=== PATIENT | female | born 2005 | race Two or more races ===

== ENCOUNTER 2025-08-28 14:36 | Emergency (ER) | payer MEDICAID ==
[~2025-08-28] VITALS: Ht 147.3 cm; Wt 55.5 kg
--- NOTE | 2025-08-28 15:43 | ED.PDOC ---
GI ASSESSMENT HPI Comments 19-year-old female presented to the emergency department complaining of abdominal pain and diarrhea for the past three weeks she was feeling better but the past two or three days patient is getting worse Chief Complaint: Abdominal Pain Time Seen by MD: 14:38 Primary Care Provider: LOU Rodriguez Notes: Nurses Notes, Medications, Allergies Allergies: Coded Allergies: NO KNOWN ALLERGIES (Unverified , 12/26/12) Home Meds Active Scripts Metoclopramide Hcl (Reglan) 10 Mg Tab, 10 MG PO BID for 10 Days, #20 TAB Prov:TAMIKA LEBLANC MD 08/28/25 Metronidazole (Flagyl) 500 Mg Tab, 1 TAB PO TID for 5 Days, #15 TAB Prov:TAMIKA LEBLANC MD 08/28/25 Bismuth Subsalicylate (PEPTO-BISMOL TO-GO) 262 Mg Chw, 262 MG PO QID for 10 Days, #40 TAB.CHEW Prov:TAMIKA LEBLANC MD 08/28/25 Information Source: Patient Mode of Arrival: Ambulatory Timing: Weeks, Came on: Gradually Duration: Since onset Quality: Aching, Burning, Cramping Vomitus: None Stool: Loose Severity: Moderate Recent: Possible spoiled food Recent Hx of: None Pain Location: Diffuse Modifying Factors: Food Associated sign and symptoms: Nausea, Diarrhea, Abdominal Pain Past Medical History PAST MEDICAL HISTORY: Denies Surgical History: Denies all surgeries 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 Pertinent BUTTON MACHINE OPERATOR History Family History Family History: Unknown Social History Smoker: Non-Smoker Alcohol: Denies ETOH Use Drugs: Denies Drug Use Lives In: Home Constitutional: denies: chills, diaphoresis, fatigue, fever, malaise, sweats, weakness, others EENTM: denies: blurred vision, double vision, ear bleeding, ear discharge, ear drainage, ear pain, ear ringing, eye pain, eye redness, hearing loss, mouth pain, mouth swelling, nasal discharge, nose bleeding, nose congestion, nose pain, photophobia, tearing, throat pain, throat swelling, voice changes, others Respiratory: denies: cough, hemoptysis, orthopnea, SOB at rest, shortness of breath, SOB with excertion, stridor, wheezing, others Cardiovascular: denies: chest pain, dizzy spells, diaphoresis, Dyspnea on exert ion, edema, irregular heart beat, left arm pain, lightheadedness, palpitations, PND, syncope, others Gastrointestinal: reports: abdominal pain, diarrhea, nausea; denies: abdomen distended, blood streaked bowels, constipated, dysphagia, difficulty swallowing, hematemesis, melena, poor appetite, poor fluid intake, rectal bleeding, rectal pain, vomiting, others Genitourinary: denies: abnormal vagina bleeding, burning, dyspareunia, dysuria, flank pain, frequency, hematuria, incontinence, pain, , vagina discharge, urgency, others Neurological: denies: dizziness, fainting, headache, left sided numbness, left sided weakness, numbness, paresthesia, pre-existing deficit, right sided numbness, right sided weakness, seizure, speech problems, tingling, tremors, weakness, others Musculoskeletal: denies: back pain, gout, joint pain, joint swelling, muscle pain, muscle stiffness, neck pain, others Integumetry: denies: bruises, change in color, change in hair/nails, dryness, laceration, lesions, lumps, rash, wounds, others Allergic/Immunocompromised: denies: Difficulty Healing, Frequent Infections, Hives, Itching, others Hematologic/Lymphatic: denies: anemia, blood clots, easy bleeding, easy bruising, swollen glands, others Endocrine: denies: excessive hunger, excessive sweating, excessive thirst, excessive urination, flushing, intolerance to cold, intolerance to heat, unexplained weight gain, unexplained weight loss, others Psychiatric: denies: anxiety, bipolar disorder, depression, hopeless, panic disorder, schizophrenia, sleepless, suicidal, others All Other Systems: Reviewed and Negative Physical Exam General Appearance: Mild Distress, Obese HEENT: Normal ENT Inspection, Pharynx Normal, TMs Normal Neck: Full Range of Motion, Non-Tender, Normal, Normal Inspection Respiratory: Chest Non-Tender, Lungs Clear, No Accessory Muscle Use, No Respiratory Distress, Normal Breath Sounds Cardiovascular: No Edema, No JVD, No Murmur, No Gallop, Normal Peripheral Pulses, Regular Rate/Rhythm Breast Exam: Deferred Gastrointestinal: No Organomegaly, Non Tender, No Pulsatile Mass, Normal Bowel Sounds, Soft Genitalia: Deferred Pelvic: Deferred Rectal: Deferred Extremities: No calf tenderness, Normal capillary refill, Normal inspection, Normal range of motion, Non-tender, No pedal edema Neurologic: Alert, ink printer II-XII nml as Tested, No Motor Deficits, Normal Affect, Normal Mood, No Sensory Deficits Cerebellar Function: Normal Reflexes: Normal Skin: Dry, Normal Color, Warm Peripheral Pulses: 1+ carotid (R), 1+ carotid (L), 1+ femoral (R) Lymphatic: No Adenopathy Was a procedure done? Was a procedure done?: No GI differential Dx Differential Diagnosis: Gastritis/PUD, Gastroenteritis, Inflammatory BD, UTI, Dehydration, Diabetes/ DKA, Drug toxicity, Electrolyte Imbalance, Food Poisoning X-Ray, Labs, Meds, VS Vital Signs Date Time Temp Pulse Resp B/P (MAP) Pulse Ox O2 Delivery O2 Flow Rate FiO2 08/28/25 17:02 61 19 100 Room Air 08/28/25 17:02 98.1 61 19 104/69 (81) 100 98.1 08/28/25 15:53 67 16 98 Room Air* 0 21 08/28/25 15:49 97.7 73 16 121/76 (91) 99 97.7 08/28/25 14:37 98.7 76 16 116/85 98 98.7 Lab Test 08/28/25 16:06 08/28/25 15:46 Range/Units Urine Color Colorless Yellow Urine Clarity Clear Clear Urine pH 7.5 5.0-9.0 Urine Specific [place] 1.007 1.001-1.035 Urine Protein Negative Negative Urine Ketones Negative Negative Urine Blood Negative Negative /uL Urine Nitrite Negative Negative Urine Bilirubin Negative Negative Urine Urobilinogen Normal Negative mg/dL Urine Leukocyte Esterase Negative Negative /uL Urine RBC 1 0 - 4 /hpf Urine Microscopic WBC < 1 0-5 /HPF Urine Squamous Epithelial Cells Few <5 /hpf Urine Bacteria None seen None Seen /hpf Urine Glucose Normal Normal mg/dL White Blood Count 5.1 4.4-10.8 10^3/uL Red Blood Count 4.74 4.0-5.20 10^6/uL Hemoglobin 13.8 12.2-16.2 g/dL Hematocrit 41.9 36.0-46.0 % Mean Corpuscular Volume 88.3 80.0-100.0 fL Mean Corpuscular Hemoglobin 29.0 28.0-32.0 pg Mean Corpuscular Hemoglobin Concent 32.9 32.0-36.0 g/dL Red Cell Distribution Width 13.4 11.8-14.3 % Platelet Count 295 140-450 10^3/uL Mean Platelet Volume 8.5 6.9-10.8 fL Neutrophils (%) (Auto) 52.9 37.0-80.0 % Lymphocytes (%) (Auto) 31.6 10.0-50.0 % Monocytes (%) (Auto) 12.2 H 0.0-12.0 % Eosinophils (%) (Auto) 2.7 0.0-7.0 % Basophils (%) (Auto) 0.6 0.0-2.0 % Neutrophils # (Auto) 2.7 1.6-8.6 10 ^3/uL Lymphocytes # (Auto) 1.6 0.4-5.4 10 ^3/uL Monocytes # (Auto) 0.6 0-1.3 10 ^3/uL Eosinophils # (Auto) 0.1 0-0.8 10 ^3/uL Basophils # (Auto) 0 0-0.2 10 ^3/uL Nucleated Red Blood Cells 0.2 % Sodium Level 141 136-145 mmol/L Potassium Level 4.0 3.5-5.1 mmol/L Chloride Level 105 98-107 mmol/L Carbon Dioxide Level 25 20-31 mmol/L Anion Gap 11 5-15 Blood Urea Nitrogen 7 L 9-23 mg/dL Creatinine 0.72 0.550-1.02 mg/dL Glomerular Filtration Rate Calc 123 >90 mL/min BUN/Creatinine Ratio 9.7 L 10.0-20.0 Serum Glucose 80 74-106 mg/dL Calcium Level 10.1 8.7-10.4 mg/dL Magnesium Level 2.2 1.6-2.6 mg/dL Lipase 50 12-53 U/L Current Medications Medications (Trade) Dose Ordered Sig/[place] Route Start Time Stop Time Status Last Admin Ondansetron HCl (Zofran) 4 mg ONCE ONCE IV 08/28/25 15:45 08/28/25 15:46 DC 08/28/25 15:50 Sodium Chloride 1,000 ml @ 1,000 mls/hr Q1H ONCE IVB 08/28/25 15:45 08/28/25 16:44 DC 08/28/25 15:48 X-Ray, Labs, Meds, VS Comment Course in the emergency department eventful patient with a diarrhea for three weeks CBC is normal Urine is negative Magnesium 2.2 Lipase 50 Patient has been hydrated She will be discharged home to follow up with her PCP and a associate art director Time of 1ST Reevaluation: 14:38 Reevaluation 1ST: Unchanged Time of 2ND Reevaluation: 16:35 Reevaluation 2ND: Improved Consultation: PCP Patient Education/Counseling: Diagnosis, Treatment, Prognosis, Need For Follow Up Family Education/Counseling: Diagnosis, Treatment, Prognosis, Need For Follow Up, No Family Present SEPSIS Sepsis Screen Date sepsis recognized/suspect: Aug 28, 2025 Time Sepsis recognized/suspect: 1436 Recent Procedure: No On Antibiotic Therapy: No Respiratory Rate >20: No Heart Rate >90: No Temp<36 C (96.8 F) or >38.3 C: No SBP <90 or MAP <65 mmHG: No New Acute Mental Status Change: No Is the patient on CPAP, BIPAP,: No Physician Orders Heplock Iv (08/28/25 15:35) Vital Signs Date Time Temp Pulse Resp B/P (MAP) Pulse Ox O2 Delivery O2 Flow Rate FiO2 08/28/25 17:02 61 19 100 Room Air 08/28/25 17:02 98.1 61 19 104/69 (81) 100 98.1 08/28/25 15:53 67 16 98 Room Air* 0 21 08/28/25 15:49 97.7 73 16 121/76 (91) 99 97.7 08/28/25 14:37 98.7 76 16 116/85 98 98.7 Laboratory Tests Test 08/28/25 15:46 White Blood Count 5.1 10^3/uL (4.4-10.8) Medications Medications Dose Ordered Sig/[place] Route Start Time Stop Time Status Last Admin Dose Admin Ondansetron HCl 4 mg ONCE ONCE IV 08/28/25 15:45 08/28/25 15:46 DC 08/28/25 15:50 Sodium Chloride 1,000 ml @ 1,000 mls/hr Q1H ONCE IVB 08/28/25 15:45 08/28/25 16:44 DC 08/28/25 15:48 Departure 1 Departure Time of Disposition: 16:31 Impression: Primary Impression: Gastroenteritis Disposition: 01 HOME / SELF CARE / HOMELESS Condition: Fair Additional Instructions: Clear liquid diet for the next 48 hours and you need to follow up with the PCP or associate art director e-Prescriptions Metoclopramide Hcl (Reglan) 10 Mg Tab 10 MG PO BID for 10 Days, #20 TAB Prov: TAMIKA LEBLANC MD 08/28/25 Metronidazole (Flagyl) 500 Mg Tab 1 TAB PO TID for 5 Days, #15 TAB Prov: TAMIKA LEBLANC MD 08/28/25 Bismuth Subsalicylate (PEPTO-BISMOL TO-GO) 262 Mg Chw 262 MG PO QID for 10 Days, #40 TAB.CHEW Prov: TAMIKA LEBLANC MD 08/28/25 Discharged With: Self, Relative (Mother) Critical Care Note Critical Care Time?: No Stability Stability form required: No Heart Score Heart Score: Heart Score Response (Comments) Value History N/A 0 EKG N/A 0 Age <45 0 Risk Factors No known risk factors 0 Troponin N/A 0 Total 0 TAMIKA LEBLANC MD Aug 28, 2025 15:43
[2025-08-28] MEDS: SODIUM CHLORIDE 0.9% 1,000 ML IVB ONE (15:48)
[2025-08-28] MEDS: ONDANSETRON HCL 4 MG/2 ML VIAL IV ONE (15:50)
[2025-08-28 15:53] VITALS: PULSE 67; RESP 16; O2SAT 98
[2025-08-28 16:04] LABS: Hematocrit 41.9 % (36.0-46.0); Hemoglobin 13.8 g/dL (12.2-16.2); Mean Corpuscular Hemoglobin 29.0 pg (28.0-32.0); Mean Corpuscular Volume 88.3 fL (80.0-100.0); Nucleated Red Blood Cells % 0.2 %
[2025-08-28 16:12] LABS: Chloride 105 mmol/L (98-107); Potassium 4.0 mmol/L (3.5-5.1); Sodium 141 mmol/L (136-145)
[2025-08-28 16:13] LABS: Anion Gap 11 (5-15); Calcium 10.1 mg/dL (8.7-10.4); Carbon Dioxide 25 mmol/L (20-31)
[2025-08-28 16:16] LABS: Urine Protein, UAD Negative (Negative)
[2025-08-28 16:18] LABS: BUN/Creatinine Ratio 9.7 (10.0-20.0); Glucose 80 mg/dL (74-106); Lipase 50 U/L (12-53); Magnesium 2.2 mg/dL (1.6-2.6)
[2025-08-28 16:20] LABS: Blood Urea Nitrogen 7 mg/dL (9-23)
[2025-08-28] MEDS ORDERED: BISM262C44 PO (16:34)
[2025-08-28] MEDS ORDERED: METR-344 PO (16:34)
[2025-08-28] MEDS ORDERED: METO-281 PO (16:34)
[2025-08-28 17:02] VITALS: BP 104/69; PULSE 61; RESP 19; TEMP 98.1; O2SAT 100
== END 2025-08-28 17:01 | disposition home or self-care (01) ==
LOC: ER 14:36
DX: K52.9 Noninfective gastroenteritis and colitis, unspecified (principal); Z79.899 Other long term (current) drug therapy
CPT/HCPCS: 36415; 80048; 81001; 83690; 83735; 85025; 96361; 96374; 99283; J2405; J7030